=== PATIENT | male | born 1950 | race Caucasian/White ===

== ENCOUNTER → 2024-05-27 13:45 | Outpatient (REF) | payer SELFPAY | LOC: HWRAD 13:45 | PROVIDERS: ATTENDING PHYSICIAN Internal Medicine | DX: I10 Essential (primary) hypertension (principal); E78.49 Other hyperlipidemia | CPT/HCPCS: 75571 ==

== ENCOUNTER 2024-08-29 09:00 | Outpatient (RCR) | payer OTHER, SELFPAY | END 2024-08-29 23:59 | disposition home or self-care (01) | LOC: RPT 09:00 | PROVIDERS: ATTENDING PHYSICIAN Plastic Surgery; FAMILY PHYSICIAN Internal Medicine | DX: M54.2 Cervicalgia (principal); Z73.6 Limitation of activities due to disability; R20.0 Anesthesia of skin; Z98.890 Other specified postprocedural states | CPT/HCPCS: 97110; 97140; 97162; 97535 ==

== ENCOUNTER 2024-10-08 15:09 | Outpatient (RCR) | payer OTHER, SELFPAY | END 2024-10-08 23:59 | disposition home or self-care (01) | LOC: RPT 15:09 | PROVIDERS: ATTENDING PHYSICIAN Plastic Surgery; FAMILY PHYSICIAN Internal Medicine | DX: M54.2 Cervicalgia (principal); Z73.6 Limitation of activities due to disability; R20.0 Anesthesia of skin; Z98.890 Other specified postprocedural states | CPT/HCPCS: 97110; 97140; 97530 ==

== ENCOUNTER 2024-10-16 07:37 | Day surgery (SDC) | payer OTHER, SELFPAY ==
[2024-10-15 09:54] VITALS: BMI 27.3
[2024-10-15 10:22] LABS: % Basophils 0.6 % (0-2); % Eosinophils 3.4 % (0-6); % Immature Granulocytes 0.2 % (0-0.5); % Lymphocytes 26.7 % (20.5-51.1); % Neutrophils 57.1 % (42.2-75.2); Absolute Eosinophils 0.2 10^3/uL (0-0.7); Absolute Lymphocytes 1.4 10^3/uL (1.2-3.4); Absolute Monocytes 0.6 10^3/uL (0.1-0.6); Absolute Neutrophils 3.1 10^3/uL (1.4-6.5); Hematocrit 45.2 % (39.0-52.0); Hemoglobin 15.3 g/dL (13.0-18.0); Mean Corp Hgb Conc. 33.8 g/dL (33.0-37.0); Mean Corpuscular Hgb 30.5 pg (27.0-31.0); Mean Corpuscular Volume 90.2 fL (80.0-94.0); Mean Platelet Volume 9.9 fL (7.4-10.4); Nucleated Red Blood Cells % 0 % (-); Platelet Count 281 10^3/uL (130-400); Red Blood Cell Count 5.01 10^6/uL (4.70-6.10); Red Cell Dist. Width 13.4 % (11.5-14.5); White Blood Cell Count 5.4 10^3/uL (4.8-10.8)
[2024-10-15 11:32] LABS: ALT (SGPT) 27 U/L (0-50); AST (SGOT) 30 U/L (17-59); Albumin 4.6 g/dl (3.5-5.0); Alkaline Phosphatase 78 U/L (38-126); Blood Urea Nitrogen 18 mg/dl (9-20); Calcium 9.6 mg/dl (8.4-10.2); Carbon Dioxide 26 mmol/L (22-30); Chloride 100 mmol/L (98-107); Estimated Creatinine Clearance 58 ml/min; Glucose 97 mg/dl (70-99); Potassium 4.7 mmol/L (3.5-5.1); Sodium 137 mmol/L (135-145); Total Bilirubin 0.6 mg/dl (0.2-1.3); Total Protein 7.1 g/dl (6.3-8.2); eGFR > 60.00
[2024-10-16] VITALS (12 sets, daily range): BP systolic 101–124; BP diastolic 63–86
--- NOTE | 2024-10-16 14:37 | ITS.CL.CATH ---
Calibration Tester - Catheterization
Cardiac Catheterization
Procedure Report:
LEFT HEART CATHETERIZATION
Date of Procedure: October 16, 2024
Referring: Gisel Jason and Nicola Muñoz
PROCEDURES:
1. Left heart catheterization and coronary angiogram.
2. Ultrasound-guided access
INDICATION: Nicola is a 74-year-old gentleman with past medical history of paroxysmal atrial fibrillation status post ablation in 2021, off Eliquis for the last 1 year, SVT on longstanding diltiazem, hypertension, hyperlipidemia who presents with
recent episodes of exertional chest discomfort referred for a left heart catheterization to rule out obstructive CAD.
ACCESS: Right radial artery, 6 [place] sheath, under ultrasound guidance.
Ultrasound was utilized for vascular access. The radial artery was visualized under ultrasound, and the vessel was patent and pulsatile. An image was stored permanently in the patient's medical record. Under direct ultrasound guidance, a 6 [place]
sheath was inserted into the artery using a micropuncture kit through a modified Seldinger technique.
HEMODYNAMICS : (mmHg)
AO (s/d) : 99/68
LV (s/d) : 101/6
LVEDP : 12
CORONARY FINDINGS
DOMINANCE: Right
LEFT MAIN: The left main artery is a large-caliber vessel which gives rise to the left anterior descending artery and the left circumflex artery. There is minimal luminal irregularities.
LEFT ANTERIOR DESCENDING: The left anterior descending artery is a medium caliber vessel which gives rise to 1 major diagonal branch as it courses to the anterior interventricular groove towards the apex. Ostial LAD has eccentric 40% stenosis. Mid
LAD just distal to the diagonal takeoff has tubular 30 to 40% stenosis. 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
RAMUS INTERMEDIUS: The ramus intermedius artery is a medium caliber vessel with minimal luminal irregularities.
CIRCUMFLEX: The left circumflex artery is a medium caliber vessel which gives rise to 1 major branching obtuse marginal branch. There is mild diffuse atherosclerotic plaque.
RIGHT CORONARY ARTERY: The right coronary artery is a large-caliber, dominant vessel which gives rise to the right posterior descending artery and the right posterolateral system. Distal RCA has a 20 to 30% focal stenosis. Otherwise there is mild
diffuse atherosclerotic plaque.
SEDATION: 45 minutes of procedural sedation was utilized. An independent medical billing instructor was present to assist with and help manage the patient's level of consciousness and physiologic status.
RADIATION SUMMARY: Fluoro Time (min): 2.2, Dose (mGy): 267.93, DAP (Gy.cm2) : 17.06
Closure Device: Vascular band over right radial artery, 11 cc of air.
CONCLUSIONS
1. Mild to moderate coronary artery disease. 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
2. Normal LVEDP.
RECOMMENDATIONS
1. Optimization of medical therapy for underlying cardiovascular risk factors. We had a discussion in regards to role for beta-blockers if there is a possibility that the myocardial bridge could be contributing to his symptoms however given
patient describes significant side effects (depressed mood and fatigue), we agreed to trial increasing his diltiazem and increasing statin with LDL goal of less than 70.
2. Echocardiogram as recommended/scheduled as an outpatient.
3. Wean radial band per protocol.
Copy to: Gisel Jason and Nicola Muñoz
Nasreen Kennedy MD, FAC, [facility]
== END 2024-10-16 13:20 | disposition home or self-care (01) ==
LOC: CATH 07:37
PROVIDERS: ATTENDING PHYSICIAN Internal Medicine Interventional Cardiology; FAMILY PHYSICIAN Internal Medicine; OTHER PHYSICIAN Internal Medicine Cardiovascular Disease
DX: E78.5 Hyperlipidemia, unspecified (principal); I10 Essential (primary) hypertension; Z98.890 Other specified postprocedural states; I48.0 Paroxysmal atrial fibrillation; I25.10 Atherosclerotic heart disease of native coronary artery without angina pectoris; Q24.5 Malformation of coronary vessels
CPT/HCPCS: 99152; 99153; 36415; 76937; 80053; 85025; 93458; C1894; Q9967

== ENCOUNTER → 2024-11-17 12:56 | Outpatient (REF) | payer OTHER, SELFPAY | LOC: RCS 12:56 | PROVIDERS: ATTENDING PHYSICIAN Internal Medicine Cardiovascular Disease; FAMILY PHYSICIAN Physician Assistant Medical | DX: I49.9 Cardiac arrhythmia, unspecified (principal); I48.19 Other persistent atrial fibrillation | CPT/HCPCS: 93306 ==

== ENCOUNTER 2025-02-04 11:17 | Outpatient (RCR) | payer OTHER, SELFPAY | END 2025-02-04 23:59 | disposition home or self-care (01) | LOC: RPT 11:17 | PROVIDERS: ATTENDING PHYSICIAN Plastic Surgery; FAMILY PHYSICIAN Internal Medicine | DX: M54.2 Cervicalgia (principal); L90.5 Scar conditions and fibrosis of skin; R29.3 Abnormal posture; Z42.8 Encounter for other plastic and reconstructive surgery following medical procedure or healed injury; Z73.6 Limitation of activities due to disability | CPT/HCPCS: 97110; 97162; 97530 ==

== ENCOUNTER 2025-03-04 09:09 | Outpatient (RCR) | payer OTHER, SELFPAY | END 2025-03-04 23:59 | disposition home or self-care (01) | LOC: RPT 09:09 | PROVIDERS: ATTENDING PHYSICIAN Plastic Surgery; FAMILY PHYSICIAN Internal Medicine | DX: M54.2 Cervicalgia (principal); L90.5 Scar conditions and fibrosis of skin; R29.3 Abnormal posture; Z42.8 Encounter for other plastic and reconstructive surgery following medical procedure or healed injury; Z98.890 Other specified postprocedural states; Z73.6 Limitation of activities due to disability | CPT/HCPCS: 97110; 97112; 97140; 97530 ==